=== PATIENT | female | born 1975 | race Two or more races ===

== ENCOUNTER → 2019-11-17 | Outpatient (CLI) | payer OTHER ==
[~2019-11-17] MED LIST: ULTRACET PO
== END | disposition home or self-care (01) ==
LOC: PRENATAL 09:00
PROVIDERS: ATTEND Obstetrics & Gynecology
DX: O35.3XX1 Maternal care for (suspected) damage to fetus from viral disease in mother, fetus 1 (principal); O34.211 Maternal care for low transverse scar from previous cesarean delivery; O09.522 Supervision of elderly multigravida, second trimester

== ENCOUNTER → 2020-03-16 | Outpatient (CLI) | payer OTHER | END | disposition home or self-care (01) | LOC: PRENATAL 08:00 | PROVIDERS: ATTEND Obstetrics & Gynecology Maternal & Fetal Medicine | DX: O26.843 Uterine size-date discrepancy, third trimester (principal); O35.0XX1 Maternal care for (suspected) central nervous system malformation in fetus, fetus 1; O36.8131 Decreased fetal movements, third trimester, fetus 1; Z36.89 Encounter for other specified antenatal screening; Z3A.35 35 weeks gestation of pregnancy ==